=== PATIENT | female | born 1975 | race Caucasian/White ===

== ENCOUNTER 2016-09-23 01:34 | Outpatient (CLI) | payer MEDICAID ==
[~2016-09-23] VITALS: Ht 165.1 cm; Wt 49.1 kg
[2016-09-23 02:15] VITALS: Ht 165.1 cm; Wt 49.1 kg
[2016-09-23 02:16] VITALS: BP 101/59; PULSE 69; RESP 18
[2016-09-23] MEDS ORDERED: PREN1TAB62 PO (02:20)
[2016-09-23] MEDS ORDERED: FERR325C PO (02:20)
[2016-09-23] MEDS ORDERED: FOLI-49 PO (02:21)
--- NOTE | 2016-09-23 06:40 | TRIAGE ---
OB Triage Datetime Report Generated by CPN: 09/23/2016 06:39 Datetime: 09/23/2016 04:30 Stage of : OB Triage Datetime: 09/23/2016 04:00 Labor Evaluation Frequency: 0 Pattern: Normal: <= 5 Contractions in 10 Minutes Heart Rate FHR Baseline Rate: 135 Monitor Mode: External US FHR Baseline Changes: No Baseline Change Variability: Moderate 6-25 bpm Accelerations: 15X15 Decelerations: None Category: Category I Datetime: 09/23/2016 03:00 Labor Evaluation Frequency: 0 Pattern: Normal: <= 5 Contractions in 10 Minutes Heart Rate FHR Baseline Rate: 135 Monitor Mode: External US FHR Baseline Changes: No Baseline Change Variability: Moderate 6-25 bpm Accelerations: 15X15 Decelerations: None Category: Category I Datetime: 09/23/2016 02:30 EGA: 26.2 Datetime: 09/23/2016 02:26 Stage of : OB Triage Vaginal Exam Exam By: A DRAKE EXTERNAL EXAM NO REDNESS ITCHING OR SWELLING NOTED Datetime: 09/23/2016 02:07 Stage of : OB Triage Assessment Type: Triage Time of Arrival: 09/23/2016 02:07 Arrived By: Wheelchair Arrived From: Home Chief Complaint: VAGINAL PAIN AND ITCHING THAT STARTED X2 DAYS, PT WENT TO [employer], WAS TOLD TO USE [facility], PT USED IT AND HAD BURNING, VAGINAL SPOTTING THAT STARTED ON SATURDAY Movement: Present Contractions: Denies/Absent Rupture of Membranes: Denies Vaginal Bleeding: Scant Vaginal Discharge: Denies Recent Sexual Intercouse: Denies Abdominal Trauma: Not Applicable Patient Complaints: None Time Provider Notified: 09/23/2016 02:31 Provider Notified: dr méndez Initial Plan: CALL MARIA DOLORES BUSTOS Maternal Assessment Level of Consciousness: Fully Conscious DTR's/Clonus: DTRs 2+; No Clonus Headache: Denies Blurred Vision: No Respiratory Effort: Unlabored; Regular Rhythm; Equal Expansion Breath Sounds, Left: Clear and Equal Breath Sounds, Right: Clear and Equal Nausea/Vomiting: Denies RUQ Epigastric Pain: Denies Lower Extremities Edema: None Degree: None Upper Extremities Edema: None Degree: None Facial Edema: None Temperature Route: Oral Fall Risk Assessment History of Falling: (0) No Secondary Diagnosis: (0) No Ambulatory Aid: (0) Bedrest/Nurse Assist IV Therapy: (0) No Gait: (0) Normal/Bedrest/Immobile Mental Status: (0) Oriented to Own Ability Fall Score: 0 Fall Risk Score Definition: No Risk: No action required Monitor Mode: External Monitor Mode: External US Pain Assessment Pain Scale: 7 Pain Presence: Intermittent
== END 2016-09-23 05:10 | disposition home or self-care (01) ==
LOC: OBT 01:34 → L-D 01:35 → OBT 05:10
PROVIDERS: ATTEND Obstetrics & Gynecology
DX: O26.892 Other specified pregnancy related conditions, second trimester (principal); L29.2 Pruritus vulvae; O09.522 Supervision of elderly multigravida, second trimester; Z3A.26 26 weeks gestation of pregnancy
CPT/HCPCS: 87081; Z7500; G0463

== ENCOUNTER 2016-10-11 20:35 | Outpatient (CLI) | payer MEDICAID ==
[~2016-10-11] VITALS: Ht 154.9 cm; Wt 50.8 kg
[~2016-10-11 20:35] MED LIST: FERR325C PO; FOLI-49 PO; PREN1TAB62 PO
[2016-10-11 20:38] VITALS: Ht 154.9 cm; Wt 50.8 kg
[2016-10-11 20:59] VITALS: BP 92/50; PULSE 65; RESP 16
[2016-10-11 20:59] LABS: ADD UMIC YES; URINE BILIRUBIN (Dip) NEGATIVE (NEGATIVE); URINE BLOOD (Dip) NEGATIVE (NEGATIVE); URINE COLOR LT. YELLOW (YELLOW); URINE GLUCOSE (Dip) NEGATIVE (NEGATIVE); URINE KETONES (Dip) NEGATIVE (NEGATIVE); URINE LEUKOCYTE ESTERASE (Dip) 1+ (NEGATIVE); URINE NITRITE (Dip) NEGATIVE (NEGATIVE); URINE TOTAL PROTEIN (Dip) NEGATIVE (NEGATIVE); URINE UROBILINOGEN (Dip) 4.0 E.U./dL (0.1-1.0)
[2016-10-11 21:27] LABS: URINE RBCS NONE SEEN /HPF (0)
[2016-10-11 21:28] LABS: BACTERIA,URINE MANY
[2016-10-11 21:29] LABS: SQUAMOUS EPITHELIAL CELL,UR MANY
[2016-10-11] MEDS ORDERED: LACTATED RINGER'S 1,000 ML IV ONE (22:30)
--- NOTE | 2016-10-11 23:23 | RADRPT ---
PROCEDURE: Obstetrical ultrasound, limited. CLINICAL INDICATION: Pelvic pain. TECHNIQUE: Multiple sonographic images of the pelvis were obtained using transabdominal technique . Images were obtained with curry scale and color Doppler. Transvaginal evaluation of the cervix wa s also performed. The images were reviewed on a PACS workstation. COMPARISON: No prior studies are available for comparison. FINDINGS: There is a single living intrauterine gestation with the fetus in a vertex presentation. hear t tones of 134 beats per minute are identified. The placenta is posterior in location, grade 1. Th e cervix is closed measuring 3.0 cm. There is no evidence of placenta previa or abruption. Measurements were made in order to determine age. The results are as follows: BPD =7.48 cm HC =26.24 cm AC =22.15 cm FL =5.73 cm. Estimated gestational age of approximately 28 weeks and 6 days. The estimated date of delivery is 12/28/2016. The EFW = 1190 +/- 178 grams. Estimated weight percentage equals 17.0%. IMPRESSION: Single viable intrauterine gestation of approximately 28 weeks and 6 days, with an ultrasound CHAS of 12/28/2016. .Rex Townsend MD, MD Date Time Electronically viewed and signed by .Rex Townsend MD, MD on 10/11/2016 23:23 .T/
[2016-10-11] MEDS ORDERED: CEFAZOLIN 2 GM/50 ML (PMX) 50 ML IVPB ONE (23:30)
[2016-10-12] MEDS ORDERED: TERBUTALINE 1 MG/ML INJ SC PRN
--- NOTE | 2016-10-12 00:46 | TRIAGE ---
OB Triage Datetime Report Generated by CPN: 10/12/2016 00:45 Datetime: 10/12/2016 00:39 Stage of : OB Triage Datetime: 10/12/2016 00:25 Pain Assessment Pain Presence: None/Denies Pain Type: N/A Pain Relief Measures: Comfort Measures Pain Assessment Comments: PT. AWOKEN BY SOUND. PT. DENIES FEELING UC'S OR HAVING ANY LOWER ABD ITALO N Datetime: 10/12/2016 00:00 Labor Evaluation Frequency: X4 Monitor Mode: External Duration (sec)2399: 60-80 Pattern: Normal: <= 5 Contractions in 10 Minutes Heart Rate FHR Baseline Rate: 150 Monitor Mode: External US Variability: Moderate 6-25 bpm Accelerations: 15X15 Decelerations: Variable Category: Category II Datetime: 10/11/2016 23:58 Monitor Mode: Palpation Resting Tone Glasco: Relaxed Contraction Comments: KICK PALPATED Monitor Mode: External US Datetime: 10/11/2016 23:52 Pain Assessment Pain Presence: None/Denies Pain Type: N/A Pain Assessment Comments: PT. SLEEPING, RESPIRATIONS VISIBLE. PT. AROUSABLE TO SOUND PT. DENIES FEELING ANY PAIN FOR THE LAST HOUR Datetime: 10/11/2016 23:47 Stage of : OB Triage Datetime: 10/11/2016 23:31 Comments: MOVEMENT AUDIBLE THROUGH EXTERNAL MONITORS Datetime: 10/11/2016 23:30 Labor Evaluation Frequency: X4 Monitor Mode: External Duration (sec)2399: 60-80 Pattern: Normal: <= 5 Contractions in 10 Minutes Heart Rate FHR Baseline Rate: 135 Monitor Mode: External US Variability: Moderate 6-25 bpm Accelerations: 10X10 Datetime: 10/11/2016 23:12 Pain Assessment Comments: RESPIRATIONS VISIBLE. PT. WOKE WITH SOUND Datetime: 10/11/2016 23:00 Labor Evaluation Frequency: X5 Monitor Mode: External Duration (sec)2399: 40-70 Pattern: Normal: <= 5 Contractions in 10 Minutes Heart Rate FHR Baseline Rate: 140 Monitor Mode: External US FHR Baseline Changes: No Baseline Change Variability: Moderate 6-25 bpm Accelerations: 10X10 Decelerations: Variable Comments: APPRORIATE FOR GA Datetime: 10/11/2016 22:37 Monitor Mode: Palpation Resting Tone Glasco: Relaxed Datetime: 10/11/2016 22:34 Monitor Mode: External Contraction Comments: MONITORS REAPPLIED POST U/S Monitor Mode: External US Comments: MONITORS RE-APPLIED POST U/S Datetime: 10/11/2016 22:00 Labor Evaluation Frequency: OCC Monitor Mode: External Duration (sec)2399: 40-70 Pattern: Normal: <= 5 Contractions in 10 Minutes Heart Rate FHR Baseline Rate: 145 Monitor Mode: External US FHR Baseline Changes: No Baseline Change Variability: Moderate 6-25 bpm Accelerations: 10X10 Decelerations: Variable Comments: APPROPRIATE FOR GA Datetime: 10/11/2016 21:43 Monitor Mode: Palpation Resting Tone Glasco: Relaxed Contraction Comments: M.D. PALPATING ABD Datetime: 10/11/2016 21:37 Stage of : OB Triage Datetime: 10/11/2016 21:30 Stage of : OB Triage Datetime: 10/11/2016 21:21 Monitor Mode: Palpation Resting Tone Glasco: Relaxed Datetime: 10/11/2016 21:20 Assessment Type: Triage Datetime: 10/11/2016 21:05 Labor Evaluation Frequency: X1 Monitor Mode: External Duration (sec)2399: 60 Pattern: Normal: <= 5 Contractions in 10 Minutes Heart Rate FHR Baseline Rate: 145 Monitor Mode: External US FHR Baseline Changes: No Baseline Change Variability: Moderate 6-25 bpm Accelerations: 10X10 Category: Category I Datetime: 10/11/2016 20:49 Time of Arrival: 10/11/2016 20:28 EGA: 28.6 Arrived By: Wheelchair Arrived From: Home Chief Complaint: LOWER ABD PAIN X1 WEEK/CONSTANT Movement: Present Contractions: Denies/Absent Rupture of Membranes: Denies Vaginal Bleeding: None Vaginal Discharge: Denies Recent Sexual Intercouse: Yes Abdominal Trauma: Not Applicable Patient Complaints: Other Time Provider Notified: 10/11/2016 21:37 Provider Notified: REICHE Initial Plan: EFM, UA, CALL OB Datetime: 10/11/2016 20:48 Assessment Type: Triage Maternal Assessment Level of Consciousness: Fully Conscious DTR's/Clonus: DTRs 2+; No Clonus Headache: Denies Blurred Vision: No Respiratory Effort: Unlabored; Regular Rhythm; Equal Expansion Breath Sounds, Left: Clear and Equal (Annotations: PT. HAS SOME NASAL CONGESTION) Breath Sounds, Right: Clear and Equal Nausea/Vomiting: Denies RUQ Epigastric Pain: Denies Lower Extremities Edema: None Degree: None Upper Extremities Edema: None Degree: None Facial Edema: None Fall Risk Assessment History of Falling: (0) No Secondary Diagnosis: (0) No Ambulatory Aid: (0) Bedrest/Nurse Assist IV Therapy: (0) No Gait: (0) Normal/Bedrest/Immobile Mental Status: (0) Oriented to Own Ability Fall Score: 0 Fall Risk Score Definition: No Risk: No action required Datetime: 10/11/2016 20:43 Monitor Mode: Palpation Resting Tone Glasco: Relaxed Contraction Comments: ABD SOFT, NO UC'S PALPATED. PT. HAS SUPRAPUBIC TENDERNESS WHEN PALPATING FRO M LEFT TO RIGHT Datetime: 10/11/2016 20:42 Monitor Mode: External Contraction Comments: EXTERNAL MONITORS APPLIED Monitor Mode: External US Comments: EXTERNAL MONITORS APPLIED Datetime: 09/23/2016 02:30 EGA: 26.2 Datetime: 09/23/2016 02:07 Fall Score: 0 Fall Risk Score Definition: No Risk: No action required
--- NOTE | 2016-10-12 01:29 | QN ---
Documentation Comment 40 y.o. G5 P$ with an IUP at 29 weeks c/o lower abdominal pain x 1 week off and on. Upon further questioning the pt states that she has had a few times/day suprapubic pain that lasts for about 5 minutes at a time and today it has been severe when it has occured. She says it started Saturday, or 2 days ago. She had intercourse that AM. When she came in she was obviously arguing with her spouse but the subject is not known. No leaking or vaginal bleeding. The patient was seen in the office 10/11 AM and only stated that she was having some pelvic discomfort but did not describe the level of pain that she is describing now. PMHx: none. POBHx: x 4 ( one set of twins). PSHX: none. NKDA. 92/50. T= 97.7 No CVAT. Abdomen soft, NT. NST baseline 130-140 bpm with accels to 170 bpm.Occasional UC's noted on admission. None after IV hydration and terbutaline SQ x 1. Cervical length 3.0 cm. EFW 1190 grams and S=D except abdomen is smaller than dates. Normal ANÍBAL. U/A 1+ WBC's. 5-10 RBC's. Also gave the pt Ancef 2 grams IVPB. A: UC's IUP at 29 weeks. P Urine cx. D/C home with instructions to observe pelvic rest, drink 6-8 glasses H2O/day, and to rest quietly for the next few days. LINNETTE BARKER MD Oct 12, 2016 01:28
== END 2016-10-12 00:40 | disposition home or self-care (01) ==
LOC: L-D 20:35 → OBT 20:35
PROVIDERS: ATTEND Obstetrics & Gynecology
DX: O23.43 Unspecified infection of urinary tract in pregnancy, third trimester (principal); O09.523 Supervision of elderly multigravida, third trimester; Z3A.29 29 weeks gestation of pregnancy
CPT/HCPCS: 76815; 76817; 81001; 87086; J0690; J3105; J7120; 36415; 81003; 96360; 96361; 96368; 96372; G0463

== ENCOUNTER 2016-11-15 11:06 | Inpatient (IN) | payer MEDICAID ==
[~2016-11-15] VITALS: Ht 154.9 cm; Wt 51.5 kg
[2016-11-15 11:17] VITALS: BP 104/52; PULSE 73; RESP 16; Ht 154.9 cm; Wt 51.5 kg
[2016-11-15] MEDS ORDERED: LACTATED RINGER'S 1,000 ML IV SCH (12:05)
[2016-11-15] MEDS ORDERED: CARBOPROST 250 MCG INJ IM PRN ×3 (12:30→18:00)
[2016-11-15] MEDS ORDERED: OXYTOCIN 30 UNITS/LR 500 ML IV SCH ×3 (12:30→13:30)
[2016-11-15] MEDS ORDERED: BUTORPHANOL 2 MG INJ IV PRN (12:30)
[2016-11-15] MEDS ORDERED: BETAMET NA PHOS/AC(6 MG/ML) 5ML INJ IM ONE (12:30)
[2016-11-15] MEDS ORDERED: MISOPROSTOL 200 MCG TAB PR PRN ×3 (12:30→18:00)
[2016-11-15] MEDS ORDERED: METHYLERGONOVINE 0.2 MG INJ IM PRN ×3 (12:30→18:00)
[2016-11-15] MEDS ORDERED: IBUPROFEN 600 MG TAB PO PRN (12:30)
[2016-11-15] MEDS ORDERED: OXYTOCIN 30 UNITS/LR 500 ML IV PRN ×3 (12:30→18:00)
[2016-11-15] MEDS ORDERED: ACETAMINOPHEN/CODEINE #3 TAB PO PRN (12:30)
[2016-11-15] MEDS ORDERED: LIDOCAINE 1% (MPF) 30 ML INJ INJ PRN (12:30)
[2016-11-15 12:55] LABS: ADD SCAN DIFF NO
[2016-11-15 13:11] LABS: BASOPHILS % 0.2 % (0.0-2.0); EOSINOPHILS % 0.4 % (0.0-7.0); HEMATOCRIT 39.7 % (37.0-47.0); LYMPHOCYTES # 0.7 10^3/ul (0.8-2.9); LYMPHOCYTES % 7.6 % (15.0-51.0); MEAN CORPUSCULAR HEMOGLOBIN 27.5 pg (29.0-33.0); MEAN CORPUSCULAR HGB CONC 32.7 g/dl (32.0-37.0); MEAN CORPUSCULAR VOLUME 83.9 fl (82.0-101.0); MEAN PLATELET VOLUME 10.9 fl (7.4-10.4); MONOCYTE # 0.4 10^3/ul (0.3-0.9); MONOCYTES % 4.8 % (0.0-11.0); NEUTROPHILS % 86.6 % (39.0-77.0); PLATELET COUNT 168 10^3/UL (140-415); RED BLOOD COUNT 4.73 10^6/ul (4.20-5.40); RED CELL DISTRIBUTION WIDTH 12.9 % (11.5-14.5); WHITE BLOOD COUNT 9.3 10^3/ul (4.8-10.8)
[2016-11-15 13:20] LABS: INR 0.88; PROTIME 11.9 Sec (12.2-14.2); PT RATIO 0.9
[2016-11-15 13:21] LABS: PARTIAL THROMBOPLASTIN TIME 25.9 Sec (25.0-35.0)
--- NOTE | 2016-11-15 13:29 | RADRPT ---
PROCEDURE: OB ultrasound for biophysical profile CLINICAL INDICATION: Ruptured membranes. Biophysical profile. . TECHNIQUE: Multiple sonographic images of the pelvis were obtained. Transabdominal view of the gr avid uterus are available for review. The images were reviewed on a PACS workstation. COMPARISON: 10/11/2016 FINDINGS: breathing movement = 0/2 tone = 0/2 motion = 2/2 ANÍBAL = 0/2 Single intrauterine gestation is identified in cephalic position. heart rate is 168 bpm. Plac enta is fundal without evidence for abruption or previa. ANÍBAL measures 3.6 cm, below normal limits. Maximum vertical pocket of fluid measures 1.1 cm. IMPRESSION: 1. Single live intrauterine gestation. 2. Biophysical profile = 2 / 8. 3. Oligohydramnios is noted - ANÍBAL measures 3.6 cm. RPTAT: EE .Dawit Talamantes MD, MD Date Time Electronically viewed and signed by .Dawit Talamantes MD, MD on 11/15/2016 13:29 .R/
[2016-11-15] MEDS ORDERED: CEFAZOLIN 2 GM/50 ML (PMX) 50 ML IV SCH (13:30)
[2016-11-15] MEDS ORDERED: morphine SULFATE/PF (10 MG/10 ML) INJ ONE (13:36)
[2016-11-15] MEDS ORDERED: ONDANSETRON 4 MG INJ ONE (13:36)
[2016-11-15] MEDS ORDERED: METOCLOPRAMIDE 10 MG INJ ONE (13:36)
[2016-11-15] MEDS ORDERED: KETOROLAC 30 MG INJ ONE (13:36)
[2016-11-15] MEDS ORDERED: EPHEDrine SULFATE 50 MG/5 ML SYG ONE (13:55)
[2016-11-15] MEDS ORDERED: LACTATED RINGER'S 1,000 ML IV PRN (14:00)
[2016-11-15] MEDS ORDERED: FENTAnyl 50 MCG/ML VIAL ONE (14:01)
[2016-11-15] MEDS ORDERED: OXYTOCIN 30 UNITS/LR 500 ML IV ONE (14:24)
[2016-11-15] MEDS: LACTATED RINGER'S 1,000 ML IV SCH ×2 (15:10→23:27)
[2016-11-15] MEDS ORDERED: DIPHENHYDRAMINE 50 MG INJ IV PRN ×3 (15:30→18:00)
[2016-11-15] MEDS ORDERED: NALOXONE (0.4 MG/ML) INJ IV PRN (15:30)
[2016-11-15] MEDS ORDERED: HYDROmorphONE (0.2 MG/ML) 10ML SYG IV PRN ×3 (15:30)
[2016-11-15] MEDS ORDERED: MEPERIDINE 25 MG INJ IV PRN (15:30)
[2016-11-15] MEDS ORDERED: HYDROmorphONE 1 MG/ML SYG IV PRN ×3 (15:30)
[2016-11-15] MEDS ORDERED: ONDANSETRON 4 MG INJ IV PRN ×3 (15:30→18:00)
[2016-11-15] MEDS ORDERED: METOCLOPRAMIDE 10 MG INJ IV PRN (15:30)
[2016-11-15 17:30] VITALS: BP 94/54; PULSE 69; RESP 18
[2016-11-15] MEDS ORDERED: LANOLIN 7 GM TUBE TOP PRN (18:00)
[2016-11-15] MEDS: IBUPROFEN 600 MG TAB PO SCH (18:00)
[2016-11-15] MEDS ORDERED: ZOLPIDEM 5 MG TAB PO PRN (18:00)
[2016-11-15] MEDS ORDERED: OXYCODONE/ACETAMINOPHEN (5/325) TAB PO PRN ×2 (18:00)
[2016-11-15 20:00] VITALS: BP 95/50; PULSE 69; RESP 20
[2016-11-15] MEDS: SENNA/DOCUSATE NA (8.6MG/50MG) TAB PO SCH (21:14)
[2016-11-15 23:55] VITALS: BP 93/55; PULSE 64; RESP 18
[2016-11-16 04:04] VITALS: BP 95/50; PULSE 95; RESP 18
[2016-11-16] MEDS: IBUPROFEN 600 MG TAB PO SCH ×5 (06:00→23:46)
[2016-11-16 07:41] LABS: ADD SCAN DIFF NO
[2016-11-16 07:45] LABS: ABNORMAL IP MESSAGE 1; BASOPHILS % 0.1 % (0.0-2.0); HEMATOCRIT 28.9 % (37.0-47.0); HEMOGLOBIN 9.8 g/dl (12.0-16.0); LYMPHOCYTES # 0.6 10^3/ul (0.8-2.9); LYMPHOCYTES % 4.9 % (15.0-51.0); MEAN CORPUSCULAR HEMOGLOBIN 28.7 pg (29.0-33.0); MEAN CORPUSCULAR HGB CONC 33.9 g/dl (32.0-37.0); MEAN CORPUSCULAR VOLUME 84.5 fl (82.0-101.0); MEAN PLATELET VOLUME 11.3 fl (7.4-10.4); MONOCYTE # 0.4 10^3/ul (0.3-0.9); MONOCYTES % 3.8 % (0.0-11.0); NEUTROPHIL # 10.2 10^3/ul (1.6-7.5); NEUTROPHILS % 90.9 % (39.0-77.0); PLATELET COUNT 160 10^3/UL (140-415); RED BLOOD COUNT 3.42 10^6/ul (4.20-5.40); RED CELL DISTRIBUTION WIDTH 12.8 % (11.5-14.5); WHITE BLOOD COUNT 11.2 10^3/ul (4.8-10.8)
[2016-11-16 08:10] VITALS: BP 99/54; PULSE 78; RESP 18
[2016-11-16] MEDS: SENNA/DOCUSATE NA (8.6MG/50MG) TAB PO SCH ×2 (08:25→21:18)
[2016-11-16] MEDS: LACTATED RINGER'S 1,000 ML IV SCH ×3 (08:26→21:28)
--- NOTE | 2016-11-16 10:01 | HP ---
Date/Time of Note Date/Time of Note DATE: 11/16/16 TIME: 09:39 OB - History Hx of Present Free Text/Dictation 41y.o EDC 12/28/16 at 33w6d came in with decrease movement and leaking fluid for 2days. She had history of ddelivery at 7mo and vaginal delivery of twin gestation On afmission pt c/o u.c 5-7 min which was 4/10 pain with leaking fluid since 11/13/161999 VE 0.5 -3 EFM base line 160" u.c 5-7 decreas bbv late dec multiple variable dec BPP 10/31 due to cat II tracing with low BPP and PPROM , imediate delivery was decided pt was prepared for primary section after proper info was given to patient with consent. Chief Complaint: decrease movement, leaking fluid for 2days and uterine contractio Estimated Due Date: Dec 28, 2016 : 5 Para: 5 Spontaneous : 0 Therapeutic : 0 Care: Good Care Obstetrical Complications: None Past Family/Social History * Past Medical, Surgical, Family and Obstetric Histories reviewed from chart. Blood Type: O+ Rubella: immune RPR/VDRL: Negative GBS Status: Unknown HBsAG: Negative OB Admission Exam Vital Signs Vital Signs Vital Signs Date Time Temp Pulse Resp B/P Pulse Ox O2 Delivery O2 Flow Rate FiO2 11/16/16 08:10 98.2 78 18 99/54 Room Air 11/16/16 04:18 98 21 Physical Exam HEENT: WNL Heart: Rhythm Normal Lungs: Clear, Equal Abdomen: WNL Extremities: Normal Reflexes: Normal Cervical Dilatation: Fingertip Effacement: Other Station: -3 Membranes: Ruptured Amniotic Fluid: Clear Accelerations: Accelerations Present Decelerations: Late Decelarations Varibility: Minimum Contractions on Admission: 6-10 Minutes Apart Intensity: Mild Last 72 hours Lab Results CBC & BMP 11/15/16 12:26 11/16/16 07:30 OB Assessment/Plan Other Assessment: IUP 33w6d PPROM CAT II WITH low BPP Plan: Section MARCIE CADET MD Nov 16, 2016 09:55
--- NOTE | 2016-11-16 10:04 | PN ---
Date/Time of Note Date/Time of Note DATE: 11/16/16 TIME: 10:02 OB Subjective Subjective Subjective passing flatus no other c/o OB Objective Objective Objective vss afebrile abdomen soft wound ddry lochia mod ext neg for tenderness or edema OB Assessment/Plan Other Assessment: stable post section #1 Other plan: as ordered MARCIE CADET MD Nov 16, 2016 10:04
[2016-11-16 12:47] VITALS: BP 103/53; PULSE 80; RESP 19
[2016-11-16 15:00] VITALS: BP 99/60; PULSE 79; RESP 18
[2016-11-16 20:00] VITALS: BP 105/65; PULSE 74; RESP 20
[2016-11-17 03:49] VITALS: BP 121/64; PULSE 79; RESP 20
[2016-11-17] MEDS: IBUPROFEN 600 MG TAB PO SCH ×3 (05:17→17:05)
[2016-11-17] MEDS: LACTATED RINGER'S 1,000 ML IV SCH (05:28)
[2016-11-17 07:30] VITALS: BP 116/66; PULSE 78; RESP 18
[2016-11-17] MEDS: SENNA/DOCUSATE NA (8.6MG/50MG) TAB PO SCH ×2 (09:19→21:32)
--- NOTE | 2016-11-17 10:46 | PN ---
Date/Time of Note Date/Time of Note DATE: 11/17/16 TIME: 10:43 OB Subjective Subjective Subjective Post C Section 2 Patient is doing well, Ambulatory She is afebrile Abdomen is soft , Fundus is firm Moderate amount of lochia Breasts are soft, Nipples are intact No calf tenderness Incision is healing well. Breast feeding the new born. Current Medications Medications (Trade) Dose Ordered Sig/Gretta Route PRN Reason Start Time Stop Time Status Last Admin Dose Admin Lactated Ringer's (Lr) 1,000 ml @ 125 mls/hr Q8H IV 11/15/16 12:05 11/15/16 13:36 DC 11/15/16 12:26 Butorphanol Tartrate (Stadol) 2 mg Q2H PRN IV PAIN 11/15/16 12:30 11/15/16 17:53 DC Lidocaine 30 ml 30 ml ONCE PRN INJ EPISIOTOMY/TEARING 11/15/16 12:30 11/15/16 17:53 DC Oxytocin/Lactated Ringer's 500 ml @ 125 mls/hr ONCE -MAY REPEAT X1 IV 11/15/16 12:30 11/15/16 17:53 DC Oxytocin/Lactated Ringer's 500 ml @ 125 mls/hr ONCE IV 11/15/16 12:30 11/15/16 13:36 DC Ibuprofen (Motrin) 600 mg ONCE PRN PO Mild Pain (Pain Score 1-3) 11/15/16 12:30 11/15/16 17:54 DC Acetaminophen/ Codeine Phosphate 2 tab 2 tab ONCE PRN PO Moderate to Severe Pain (4-10) 11/15/16 12:30 11/15/16 17:54 DC Lactated Ringer's 1,000 ml @ 2,000 mls/hr Q30M PRN IV PRE-EPIDURAL BOLUS 11/15/16 14:00 Oxytocin/Lactated Ringer's 500 ml @ 0 mls/hr ONCE PRN IV For Hemorrhage Management 11/15/16 12:30 11/15/16 13:36 DC Methylergonovine Maleate (Methergine) 0.2 mg ONCE PRN IM VAGINAL BLEEDING 11/15/16 12:30 11/15/16 13:36 DC Carboprost Tromethamine (Hemabate) 250 mcg ONCE PRN IM VAGINAL BLEEDING 11/15/16 12:30 11/15/16 13:36 DC Misoprostol (Cytotec) 1,000 mcg ONCE PRN NE VAGINAL BLEEDING 11/15/16 12:30 11/15/16 13:36 DC Betamethasone Acet/Betameth SodPhos 12 mg 12 mg Q12 ONCE IM 11/15/16 12:30 11/15/16 12:31 DC 11/15/16 12:32 Lactated Ringer's 1,000 ml @ 125 mls/hr Q8H IV 11/15/16 13:28 11/16/16 08:26 Cefazolin Sodium/ Dextrose 50 ml @ 100 mls/hr ONCE IV 11/15/16 13:30 11/15/16 17:53 DC Oxytocin/Lactated Ringer's 500 ml @ 125 mls/hr ONCE IV 11/15/16 13:30 11/15/16 17:53 DC Oxytocin/Lactated Ringer's 500 ml @ 0 mls/hr ONCE PRN IV For Hemorrhage Management 11/15/16 13:30 11/15/16 17:54 DC Methylergonovine Maleate (Methergine) 0.2 mg ONCE PRN IM VAGINAL BLEEDING 11/15/16 13:30 11/15/16 17:54 DC Carboprost Tromethamine (Hemabate) 250 mcg ONCE PRN IM VAGINAL BLEEDING 11/15/16 13:30 11/15/16 17:54 DC Misoprostol (Cytotec) 1,000 mcg ONCE PRN NE VAGINAL BLEEDING 11/15/16 13:30 11/15/16 17:54 DC Morphine Sulfate (Duramorph) 10 mg STK-MED ONCE .ROUTE 11/15/16 13:36 11/15/16 13:37 DC Ondansetron HCl (Zofran Inj) 4 mg STK-MED ONCE .ROUTE 11/15/16 13:36 11/15/16 13:37 DC Metoclopramide HCl (Reglan) 10 mg STK-MED ONCE .ROUTE 11/15/16 13:36 11/15/16 13:37 DC Ketorolac Tromethamine (Toradol) 30 mg STK-MED ONCE .ROUTE 11/15/16 13:36 11/15/16 13:37 DC Ephedrine Sulfate 50 mg STK-MED ONCE .ROUTE 11/15/16 13:55 11/15/16 13:56 DC Fentanyl 100 mcg 100 mcg STK-MED ONCE .ROUTE 11/15/16 14:01 11/15/16 14:02 DC Oxytocin/Lactated Ringer's 500 ml @ ud STK-MED ONCE IV 11/15/16 14:24 11/15/16 14:25 DC Hydromorphone HCl (Dilaudid (Rec)) 0.2 mg PACU ORDER PRN IV MILD PAIN LEVEL 1-3 11/15/16 15:30 11/15/16 21:30 DC Hydromorphone HCl (Dilaudid (Rec)) 0.4 mg PACU ORDER PRN IV MODERATE PAIN LEVEL 4-6 11/15/16 15:30 11/15/16 21:30 DC Hydromorphone HCl (Dilaudid (Rec)) 0.6 mg PACU ORDER PRN IV SEVERE PAIN LEVEL 7-10 11/15/16 15:30 11/15/16 21:30 DC Ondansetron HCl (Zofran Inj) 4 mg PACU ORDER PRN IV NAUSEA AND/OR VOMITING 11/15/16 15:30 11/15/16 17:54 DC Metoclopramide HCl (Reglan) 10 mg PACU ORDER PRN IV NAUSEA AND/OR VOMITING 11/15/16 15:30 11/15/16 21:30 DC Meperidine HCl (Demerol) 25 mg PACU ORDER PRN IV POST-OP RIGORS 11/15/16 15:30 11/15/16 21:30 DC Diphenhydramine HCl (Benadryl) 25 mg PACU ORDER PRN IV PRURITUS 11/15/16 15:30 11/15/16 17:54 DC Naloxone HCl (Narcan) 0.1 mg Q2M PRN IV FOR RESP RATE 8 OR LESS 11/15/16 15:30 11/16/16 15:29 DC Hydromorphone HCl (Dilaudid) 1 mg Q3H PRN IV BREAKTHROUGH PAIN 11/15/16 15:30 11/16/16 15:29 DC Hydromorphone HCl (Dilaudid) 0.2 mg Q3H PRN IV PAIN LEVEL 1-5 11/15/16 15:30 11/16/16 15:29 DC Hydromorphone HCl (Dilaudid) 0.4 mg Q3H PRN IV PAIN LEVEL 6-10 11/15/16 15:30 11/16/16 15:29 DC Diphenhydramine HCl (Benadryl) 25 mg Q6H PRN IV ITCHING 11/15/16 15:30 11/15/16 18:04 DC Ondansetron HCl (Zofran Inj) 4 mg Q6H PRN IV NAUSEA AND/OR VOMITING 11/15/16 15:30 11/15/16 18:04 DC Oxycodone/ Acetaminophen (Percocet (5/ 325)) 1 tab Q4H PRN PO PAIN LEVEL 4-6 11/15/16 18:00 Oxycodone/ Acetaminophen (Percocet (5/ 325)) 2 tab Q4H PRN PO PAIN LEVEL 7-10 11/15/16 18:00 Ibuprofen (Motrin) 600 mg Q6 PO 11/15/16 18:00 11/17/16 05:17 Simethicone (Mylicon) 160 mg Q8H PRN PO DISTENSION/GAS/BLOATING 11/15/16 18:00 Senna/Docusate Sodium (Senokot-S) 1 tab BID PO 11/15/16 21:00 11/17/16 09:19 Lanolin (Msp-[id number]-Cqwmwt) 1 applic BEDSIDE MEDICATION PRN TOP BEDSIDE FOR TAQUERIA TO NIPPLES 11/15/16 18:00 Diphtheria/ Tetanus/Acell Pertussis 0.5 ml 0.5 ml ONCE ONCE IM* 11/18/16 09:00 11/18/16 09:01 Oxytocin/Lactated Ringer's 500 ml @ 0 mls/hr ONCE PRN IV For Hemorrhage Management 11/15/16 18:00 Methylergonovine Maleate (Methergine) 0.2 mg ONCE PRN IM VAGINAL BLEEDING 11/15/16 18:00 Carboprost Tromethamine (Hemabate) 250 mcg ONCE PRN IM VAGINAL BLEEDING 11/15/16 18:00 Misoprostol (Cytotec) 1,000 mcg ONCE PRN NE VAGINAL BLEEDING 11/15/16 18:00 Diphenhydramine HCl (Benadryl) 25 mg Q6H PRN IV PRURITUS 11/15/16 18:00 Ondansetron HCl (Zofran Inj) 4 mg Q6H PRN IV NAUSEA AND/OR VOMITING 11/15/16 18:00 Zolpidem Tartrate (Ambien) 10 mg QHS PRN PO INSOMNIA 11/15/16 18:00 KAYLA TELLEZ MD Nov 17, 2016 10:46
[2016-11-17 16:00] VITALS: BP 99/54; PULSE 69; RESP 18
[2016-11-17 19:45] VITALS: BP 92/65; PULSE 85; RESP 19
[2016-11-18] MEDS: IBUPROFEN 600 MG TAB PO SCH ×4 (00:20→18:41)
[2016-11-18 07:50] VITALS: BP 90/50; PULSE 64; RESP 18
[2016-11-18] MEDS ORDERED: DIPHTH/TET/ACEL PERTUSS (ADULT) 0.5 ML VIAL IM* ONE (09:00)
[2016-11-18] MEDS: SENNA/DOCUSATE NA (8.6MG/50MG) TAB PO SCH ×2 (10:01→22:34)
--- NOTE | 2016-11-18 15:15 | QN ---
Documentation Comment pt doing well pod 3 vss exam wnl ap pod 3 pt dong well plan dc in am GEENA HARRIS MD Nov 18, 2016 15:15
[2016-11-18 15:45] VITALS: BP 93/61; PULSE 85; RESP 18
[2016-11-18 20:00] VITALS: BP 95/56; PULSE 77; RESP 16
[2016-11-19] MEDS: IBUPROFEN 600 MG TAB PO SCH ×4 (00:52→17:57)
[2016-11-19 04:00] VITALS: BP_SYST 105; BP_SYST 106; BP_DIAS 51; BP_DIAS 59; PULSE 76; PULSE 78; RESP 18; RESP 20
[2016-11-19 07:40] VITALS: BP 102/52; PULSE 72; RESP 16
[2016-11-19] MEDS: SENNA/DOCUSATE NA (8.6MG/50MG) TAB PO SCH (08:30)
--- NOTE | 2016-11-19 11:49 | OPR ---
DATE OF OPERATION: 11/15/2016 PREOPERATIVE DIAGNOSIS: 33 weeks 6 days with decreased movement and the pre mature rupture of membranes and category 2 tracing with low BPP 2 out of 8. POSTOPERATIVE DIAGNOSIS: 1. 33 weeks 6 days with decreased movement and the premature rupture of mem branes and category 2 tracing with low BPP 2 out of 8. 2. Delivered the normal , 2, 8 and 9. OPERATION PROCEDURE: Primary low transverse section. ANESTHESIA: Spinal. ANESTHESIOLOGIST: . SURGEON: Kilo Guaman MD ESTIMATED BLOOD LOSS: 600 mL. PROCEDURE: Under appropriate induction, the patient was placed in the frog position. Leon cathete r was introduced into the bladder under sterile condition, repositioned to supine. Abdominal wall w as prepped and draped in usual aseptic manner. A transverse incision was made approximately 2 finge rs above the pubic rami. Incision was carried down through the subcutaneous tissue to the anterior recti fascia which was incised transversely in length of the incision. Fascial flap was created by blunt and sharp dissection of tendinous attachment upward and downward. Two rectus muscles split in midline and peritoneal cavity was entered. Low portion of the uterus was exposed, which was narrow and the incision was made above the uterovesical reflection and more likely U-shaped and started a little higher than usual level. The incision was layer by layer, reached the amniotic membrane, whi ch was ruptured and revealed clear amniotic fluid, a small amount and the normal was born from the left occiput transverse position. Mouth and nose were cleaned and cord was clamped an d cut, handed to the respiratory care personnel for further care. There was a short period of milki ng of the blood toward the fetus. was 8 and 9 according to the neonatology unit. Cord blood was obtained and the placenta was removed manually. Cavity was completely explored after uter us was exteriorized. Incision was closed using #1 chromic catgut on the first layer interlocking and second layer using 0 chromic catgut including uterine serosa. There was no bleeding noted. The uterus was relocated in to the abdominal cavity. After all the blood was removed from the operative field focused removed f rom both gutters. Uterine incision site was checked and a piece of Surgicel was placed on the incis ion. Sponge count taken which was correct. Parietal peritoneum was closed using 0 chromic catgut i n continuous manner. Muscle closed with 0 chromic catgut in continuous manner. Fascia closed with #1 Vicryl in continuous manner in 2 segments. Subcutaneous tissue irrigated with water. This layer was approximated with 2-0 plain in continuous manner after adequate hemostasis was secured. The sk in closed with a 3-0 Monocryl in subcuticular manner. Steri-Strip applied. Pressure dressing appli ed. Estimated blood loss approximately 600 mL. The patient withstood procedure well and was sent t o recovery room in good condition. Dictated By: KILO TRUJILLO/ASHOK Conf#: [id number] DID#: [id number]
[2016-11-19 16:00] VITALS: BP 102/58; PULSE 83; RESP 18
--- NOTE | 2016-11-19 19:14 | PD.PPDC ---
PERSONNEL CONSULTANT Discharge Instruction Condition Patient Condition: Good Diet Diet: Resume Regular Diet Activity/Restrictions Activity: Bedrest May be up to bathroom May be up for meals May Shower Restrictions: No Exercising No Lifting No Driving Minimize Walking Minimize Stair-climbing No Sexual Activity No Tampons, douche Wound/Drain Care Instructions Wound/Drain Care Instructions: Remove Steri Strips in 2 weeks Keep clean and dry Follow-up Follow-up with Physician: 2, Week/Weeks Return to clinic for [employer] GLUER OPERATOR Instructions: Fever greater than 101 Chills Worsening abdominal pain Excessive Vaginal Bleeding OB Instructions: Breast Tenderness Depression Surgical Instructions: Incisional Drainage Incisional Redness LINNETTE BARKER MD Nov 19, 2016 19:14
--- NOTE | 2016-11-19 19:24 | DS ---
Date/Time of Note Date/Time of Note DATE: 11/19/16 TIME: 19:18 Obstetrical Discharge Record Final Diagnosis Final Diagnosis: delivered Other Final Diagnosis Delivery of a viable baby girl weighing 1945 grams, or 4# 5oz, 17.5' long, and with Apgars of 2/8/9. Section Section: Primary Primary Indication Non-reassuring status. Oligohydramnios. premature rupture of membranes. Complications Complications: less than 4 at 1 mins, Low weight 1500-2500gms Complications Other (Prolonged premature rupture of membranes) Augmentation: No Induction: No Rupture of Membranes: Yes Gestational Age at Rupture 33 weeks 4 days. Condition on Discharge Physical Assessment Last Vitals: T=98.8. BP 102/58. Voiding: Yes Bowel Movement: Yes Breast: Engorged Fundus: Firm Abdomen and Incision: Incision clean, dry and intact. Calf Tenderness: No Patient Condition: Good LINNETTE BARKER MD Nov 19, 2016 19:24
[2016-11-19 19:50] VITALS: BP 101/56; PULSE 79; RESP 20
== END 2016-11-19 20:20 | disposition home or self-care (01) | DRG 765 ==
LOC: OBT 11:06 → L-D 11:07 → OBT 12:10 → L-D 13:41 → PP1 17:28
PROVIDERS: ADMIT Obstetrics & Gynecology; ATTEND Obstetrics & Gynecology
PROC: 10D00Z1 Extraction of Products of Conception, Low, Open Approach (ICD-10-PCS; principal; 2016-11-15 14:00)
DX: O36.8130 Decreased fetal movements, third trimester, not applicable or unspecified (principal); O60.14X0 Preterm labor third trimester with preterm delivery third trimester, not applicable or unspecified; Z3A.33 33 weeks gestation of pregnancy; Z37.0 Single live birth; O42.913 Preterm premature rupture of membranes, unspecified as to length of time between rupture and onset of labor, third trimester
CPT/HCPCS: 76818; 85025; 85610; 85730; 86592; 86885; 86900; 86901; 88307; 90715; 94760; 99464; G0463; J0690; J0702; J1885; J2274; J2405; J2590; J2765; J3010; J7120

== ENCOUNTER 2016-11-22 02:30 | Emergency (ER) | payer SELFPAY ==
[~2016-11-22] VITALS: Ht 152.4 cm; Wt 48.8 kg
[2016-11-22 02:33] VITALS: Ht 152.4 cm; Wt 48.8 kg
== END 2016-11-22 04:17 | disposition left against medical advice (07) ==
LOC: E/R 02:30
DX: Z53.21 Procedure and treatment not carried out due to patient leaving prior to being seen by health care provider (principal)